=== PATIENT | male | born 1985 | race Caucasian/White ===

== ENCOUNTER 2017-08-11 14:39 | Emergency (ER) | payer OTHER ==
--- NOTE | 2017-08-11 14:51 | UC ---
Hand/Wrist HPI - HPI Summary HPI Summary: Pt presents with right hand pain s/p injury today at work. He tells me that about 1 hour [employer] he was loading trees onto a truck and his hand got caught in between two logs. Had immediate pain soon followed by mild swelling. His boss made him be evaluated. He has not taken anything for pain. Is currently applying ice. No numbness or tingling. - History Of Current Complaint Stated Complaint: HAND INJURY Time Seen by Provider: 08/11/17 14:50 Hx Obtained From: Patient Onset/Duration: Sudden Onset Severity Initially: Moderate Severity Currently: Moderate Pain Intensity: 6 Pain Scale Used: 0-10 Numeric Character Of Pain: Dull, Throbbing, Stiffness Aggravating Factor(s): Movement Alleviating Factor(s): Rest, Ice - Allergies/Home Medications Allergies/Adverse Reactions: Allergies Allergy/AdvReac Type Severity Reaction Status Date / Time No Known Allergies Allergy Verified 08/11/17 14:59 Home Medications: Home Medications NK [No Home Medications Reported] 08/11/17 [History Confirmed 08/11/17] PMH/Surg Hx/FS Hx/Imm Hx Previously Healthy: Yes - Surgical History Surgical History: Yes Surgery Procedure, Year, and Place: tonsillectomy - Family History Known Family History: Positive: None - Social History Occupation: Employed Full-time Lives: With Family Alcohol Use: Rare Substance Use Type: None Smoking Status (MU): Never Smoked Tobacco Review of Systems Constitutional: Negative Skin: Negative Respiratory: Negative Cardiovascular: Negative Neurovascular: Negative Musculoskeletal: Other: - Right hand pain Neurological: Negative Psychological: Negative All Other Systems Reviewed And Are Negative: Yes Physical Exam Triage Information Reviewed: Yes Appearance: Well-Appearing, No Pain Distress, Well-Nourished Vital Signs Reviewed: Yes Respiratory: Positive: Lungs clear, Normal breath sounds, No respiratory distress, No accessory muscle use Cardiovascular: Positive: RRR, No Murmur, Pulses Normal - Right radial and ulnar , Brisk Capillary Refill - Right hand and all fingers Musculoskeletal: Positive: Strength Intact - Right hand, ROM Limited @ - 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 No snuffbox or wrist tenderness. Neurological: Positive: Alert, Other: - Sensations intact right hand and all fingers Psychological: Positive: Age Appropriate Behavior Hand/Wrist Course/Dx - Course Course Of Treatment: XR: IMPRESSION: No fracture of the right hand is noted. Suspect contusion. He was offered and IGNACIA wrap, but declined. Advised RICE and ibuprofen prn. - Differential Dx/Diagnosis Provider Diagnoses: Right hand pain s/p crush injury Discharge - Discharge Plan Condition: Stable Disposition: HOME Patient Education Materials: Contusion in Adults (ED) Referrals: No Primary Care Phys,NOPCP [Primary Care Provider] - Additional Instructions: If you develop a fever, shortness of breath, chest pain, new or worsening symptoms - please call your PCP or go to the ED. Your blood pressure was high at todays visit. Please see your primary provider within 4 weeks for recheck and re-evaluation. 1) Rest, Ice, and Elevate your hand as much as possible over the next 24-48 hours. 2) May take 600-800mg ibuprofen every 6-8 hours as needed for pain
[2017-08-11 14:59] VITALS: BP 150/94
--- NOTE | 2017-08-11 15:18 | RAD ---
Indication: Right hand injury. 3 views of the right hand demonstrates no fracture. No other bone or joint abnormality is noted. IMPRESSION: No fracture of the right hand is noted.
== END 2017-08-11 15:30 | disposition home or self-care (01) ==
LOC: UCEAST 14:39
DX: M79.641 Pain in right hand (principal); S67.21XA Crushing injury of right hand, initial encounter; W23.0XXA Caught, crushed, jammed, or pinched between moving objects, initial encounter; Y93.89 Activity, other specified; Y92.89 Other specified places as the place of occurrence of the external cause; Y99.0 Civilian activity done for income or pay
CPT/HCPCS: 99211; G0463

== ENCOUNTER 2017-11-22 07:33 | Emergency (ER) | payer SELFPAY ==
[2017-11-22 07:44] VITALS: BP 160/105
--- NOTE | 2017-11-22 08:45 | UC ---
Ear Complaint HPI - HPI Summary HPI Summary: PATIENT PRESENTS WITH 4 DAYS OF WORSENING LEFT SINUS PRESSURE AND LEFT EAR PAIN. HE DENIES ANY HEARING LOSS OR DRAINAGE FROM THE EAR. HE ALSO HAS A HEADACHE AND TOOK SOME [id number] HEADACHE PILLS WHICH GAVE HIM TEMPORARY RELIEF. BENADRYL DID NOT HELP. THE PAIN IS KEEPING HIM UP AT NIGHT. HE DENIES ANY COUGH, NASAL DRAINAGE, SORE THROAT OR FEVER. HE IS NOT A MIGRAINE/ HEADACHE PERSON. NO VISUAL DISTURBANCES OR FACIAL SWELLING. HE HAS HAD SOME INTERMITTENT TEARING OF HIS LEFT EYE AND SLIGHT SENSITIVITY TO LIGHT. - History of Current Complaint Chief Complaint: UCGeneralIllness Stated Complaint: SINUS ISSUE Time Seen by Provider: 11/22/17 08:03 Hx Obtained From: Patient Onset/Duration: Gradual Onset, Lasting Days, Still Present Severity Initially: Moderate Severity Currently: Moderate Pain Intensity: 7 Pain Scale Used: 0-10 Numeric Aggravating Factors: Nothing Alleviating Factors: Nothing Associated Signs/Symptoms: Negative: Discharge, Hearing Loss, Trauma to Ear, Swelling @, URI Symptoms - Allergies/Home Medications Allergies/Adverse Reactions: Allergies Allergy/AdvReac Type Severity Reaction Status Date / Time No Known Allergies Allergy Verified 11/22/17 07:44 PMH/Surg Hx/FS Hx/Imm Hx Previously Healthy: Yes - Surgical History Surgical History: Yes Surgery Procedure, Year, and Place: tonsillectomy - Family History Known Family History: Positive: Diabetes - Social History Alcohol Use: Rare Substance Use Type: None Smoking Status (MU): Never Smoked Tobacco - Immunization History Most Recent Tetanus Shot: UNK Review of Systems Constitutional: Negative Eyes: Drainage - INTERMITTENT DRAINAGE LEFT EYE, Photophobia ENT: Ear Ache, Sinus Pain/Tenderness Respiratory: Negative Cardiovascular: Negative Gastrointestinal: Negative Neurological: Headache All Other Systems Reviewed And Are Negative: Yes Physical Exam Triage Information Reviewed: Yes Appearance: Well-Appearing, No Pain Distress, Well-Nourished Vital Signs: Initial Vital Signs Temp 98.7 F 11/22/17 07:40 Pulse 79 11/22/17 07:40 Resp 21 11/22/17 07:40 BP 160/105 11/22/17 07:40 Pulse Ox 100 11/22/17 07:40 Vital Signs Reviewed: Yes Eyes: Positive: Conjunctiva Clear, Other: - PERRL, EOMI. Negative: Discharge ENT: Positive: Hearing grossly normal, Pharynx normal, TMs normal Dental: Positive: Other: - RIGHT LOWER WISDOM TOOTH BROKEN. MULTIPLE FILLED CAVITIES THROUGHOUT Neck: Positive: Supple, Nontender, No Lymphadenopathy Respiratory Exam: Normal Cardiovascular Exam: Normal Abdomen Description: Positive: Soft Musculoskeletal: Positive: No Edema Neurological: Positive: Alert Psychological: Positive: Age Appropriate Behavior Skin: Negative: rashes Ear Complaint Course/Dx - Course Course Of Treatment: UNCLEAR ETIOLOGY OF PATIENT'S SYMPTOMS. HE HAS SIGNIFICANT LEFT SINUS PAIN AND LEFT EAR PAIN THAT IS GETTING WORSE AND KEEPING HIM UP AT NIGHT BUT DENIES ANY FEVER, COUGH OR NASAL DRAINAGE. ALTHOUGH HE DENIES DENTAL PAIN HE DOES HAVE POOR DENTITION. THERE IS NO FACIAL SWELLING OR REDNESS OF THE SKIN. GIVEN THE LEVEL OF DISCOMFORT WILL TREAT EMPIRICALLY WITH AUGMENTIN WHICH WILL COVER FOR SINUSES AND EARS AND DENTAL ISSUES. FOLLOW-UP IF NOT IMPROVING WITH THIS TREATMENT. DISCUSSED POSSIBILITY OF DEVELOPING CLUSTER TILLMAN ALTHOUGH PRESENTATION NOT CLASSIC FOR THIS EITHER. - Differential Dx/Diagnosis Provider Diagnoses: SINUS INFECTION Discharge - Sign-Out/Discharge Documenting (check all that apply): Discharge/Admit/Transfer - Discharge Plan Condition: Stable Disposition: HOME Prescriptions: Amoxicillin/Clavulanate TAB* [Augmentin TAB 875*] 875 mg PO BID #20 tab Patient Education Materials: Sinusitis (ED) Referrals: [facility] [Provider Group] - 2 Weeks Additional Instructions: UNCLEAR ETIOLOGY OF YOUR SYMPTOMS. GIVEN YOUR SIGNIFICANT SINUS DISCOMFORT AND LEFT EAR PAIN WILL COVER WITH AUGMENTIN. THIS WILL ALSO COVER ANY DENTAL CONCERNS. IF YOUR SYMPTOMS DO NOT IMPROVE WITH THIS TREATMENT FOLLOW-UP WITH YOUR PCP AT [facility]. GO TO THE ED WITHOUT FAIL IF YOU DEVELOP WORSENING PAIN, FACIAL SWELLING, FEVER, VISUAL DISTURBANCES OR ANY OTHER CONCERNING SYMPTOMS. YOUR BLOOD PRESSURE WAS ELEVATED TODAY (160/105). THIS MAY BE DUE TO YOUR ACUTE CONDITION. MONITOR AND FOLLOW-UP WITH YOUR PCP WITHIN 4 WEEKS IF IT HAS NOT RETURNED TO NORMAL. - Billing Disposition and Condition Condition: STABLE Disposition: Home
== END 2017-11-22 08:45 | disposition home or self-care (01) ==
LOC: UCEAST 07:33
DX: J32.9 Chronic sinusitis, unspecified (principal); Z83.3 Family history of diabetes mellitus
CPT/HCPCS: 99212; G0463

== ENCOUNTER 2018-06-22 09:16 | Emergency (ER) | payer BC, OTHER ==
[2018-06-22 09:39] VITALS: BP 150/100
[2018-06-22] MEDS: Ibuprofen TAB* 600 MG PO ONE (10:09)
--- NOTE | 2018-06-22 10:09 | UC ---
Back Pain HPI - HPI Summary HPI Summary: 32-year-old male comes to clinic today with a chief complaint of back pain. Patient reports the back pain started at work in 2017. He's had pain intermittently in his back ever since then. He did undergo physical therapy at one time which did help. Most recent episode has been over the last 3 weeks. This morning the pain is worse than usual. It's located in the lower thoracic upper lumbar spine. Denies any radiation of pain into the buttocks or into the legs. Denies any weakness or numbness. No difficulty controlling urine or bowels. Pain is worse with movement lifting. - History of Current Complaint Chief Complaint: UCBackPain Stated Complaint: BACK PAIN Time Seen by Provider: 06/22/18 09:50 Pain Intensity: 6 - Allergies/Home Medications Allergies/Adverse Reactions: Allergies Allergy/AdvReac Type Severity Reaction Status Date / Time No Known Allergies Allergy Verified 06/22/18 09:33 Home Medications: Home Medications Aspirin TAB* [Aspirin 325 MG TAB*] 650 mg PO Q6H PRN 06/22/18 [History Confirmed 06/22/18] PMH/Surg Hx/FS Hx/Imm Hx Previously Healthy: Yes - CHRONIC INTERMITTENT LOW BACK PAIN SINCE 2017 - Surgical History Surgical History: Yes Surgery Procedure, Year, and Place: tonsillectomy - Family History Known Family History: Positive: None, Diabetes - Social History Alcohol Use: Rare Substance Use Type: None Smoking Status (MU): Never Smoked Tobacco - Immunization History Most Recent Tetanus Shot: UNK Review of Systems All Other Systems Reviewed And Are Negative: Yes Constitutional: Positive: Negative Skin: Positive: Negative Eyes: Positive: Negative ENT: Positive: Negative Respiratory: Positive: Negative Cardiovascular: Positive: Negative Gastrointestinal: Positive: Negative Genitourinary: Positive: Negative Motor: Positive: Negative Neurovascular: Positive: Negative Musculoskeletal: Positive: Other: - Patient is tender to palpation lower thoracic and upper lumbar spine. Legs have full range of motion no sensation deficits. Neurological: Positive: Negative Psychological: Positive: Negative Is Patient Immunocompromised?: No Physical Exam Triage Information Reviewed: Yes Appearance: Well-Appearing, Well-Nourished, Pain Distress - MILD WITH BACK ROM Vital Signs: Initial Vital Signs Temp 98.4 F 06/22/18 09:26 Pulse 91 06/22/18 09:26 Resp 16 01/10/19 09:26 BP 150/100 06/22/18 09:26 Pulse Ox 98 06/22/18 09:26 Vital Signs Reviewed: Yes Eye Exam: Normal Eyes: Positive: Conjunctiva Clear Neck exam: Normal Neck: Positive: Supple Respiratory Exam: Normal Respiratory: Positive: Lungs clear, Normal breath sounds, No respiratory distress Cardiovascular: Positive: RRR Musculoskeletal: Positive: Strength Intact, ROM Intact, Other: - Patient is tender to palpation lower thoracic and upper lumbar spine. Legs have full range of motion no sensation deficits. Neurological Exam: Normal Neurological: Positive: Alert, Muscle Tone Normal Psychological Exam: Normal Psychological: Positive: Age Appropriate Behavior Skin Exam: Normal Back Pain Course/Dx - Course Course Of Treatment: Order Information: CT SPINE THORACIC W/O. Accession Number : [id number]. CPT: 83929. INDICATION: Worsening mid to lower back pain. COMPARISON: There are no prior studies available for comparison. TECHNIQUE: Contiguous axial sections of the thoracic and lumbar spine were obtained. Images were reconstructed in the sagittal and coronal planes. FINDINGS: Thoracic spine: In the sagittal plane there is exaggerated kyphosis. In the AP view there is a small. degree of S shaped curvature of the thoracic spine dextroconvex superiorly and levoconvex. inferiorly. The vertebral bodies and facet joints are otherwise appropriately aligned. Degenerative changes include loss of intervertebral disc height and anterior marginal. osteophyte formation most severely seen at T8-T12. At the anterior margin of the T11/T12. intervertebral disc there is vacuum disc phenomenon. Lumbar spine: There is a mild degree of loss of intervertebral disc height at L1/L2 and T12/L1. More. inferiorly the intervertebral disc height is adequately maintained. In the sagittal plane. normal lumbar lordosis is maintained. There is no curvature of the lumbar spine in the AP. view. The vertebral bodies and facet joints are appropriately aligned. There is no significant. spondylolisthesis. There is mild broad-based disc protrusion at L3/L4 combining with facet arthropathy and. thickening of ligamentum flavum to cause a mild degree of bilateral neural foraminal. stenosis. There is broad-based disc protrusion at L4/L5 combining with facet arthropathy and. thickening of ligamentum flavum to cause a mild degree of bilateral neural foraminal. stenosis and only 8 light degree of central canal stenosis. At L5/S1 there is broad-based disc protrusion abutting the ventral thecal sac does not. appear to yield any significant central canal or neural foraminal stenosis. IMPRESSION: 1. Degenerative changes most severely affecting the mid-level and lower thoracic spine. likely exacerbated by Thoracic spine S-shaped scoliosis and exaggerated kyphotic. deformity. 2. Mild degenerative disc disease of the lumbar spine causing what appears to be mild. degrees of central canal or neural foraminal stenoses from L3 to L5. 3. There is no CT evidence of an acute fracture or spondylolisthesis of the thoracic or. lumbar spine. Soft tissues are incompletely evaluated with noncontrast CT imaging. If it will influence. clinical management superior characterization can be made with MRI. . <Electronically signed by Arpan Bui MD in [place]> 1111. Order Information: CT SPINE LUMBAR W/O. Accession Number: [id number]. CPT: 07964. INDICATION: Worsening mid to lower back pain. COMPARISON: There are no prior studies available for comparison. TECHNIQUE: Contiguous axial sections of the thoracic and lumbar spine were obtained. Images were reconstructed in the sagittal and coronal planes. FINDINGS: Thoracic spine: In the sagittal plane there is exaggerated kyphosis. In the AP view there is a small. degree of S shaped curvature of the thoracic spine dextroconvex superiorly and levoconvex. inferiorly. The vertebral bodies and facet joints are otherwise appropriately aligned. Degenerative changes include loss of intervertebral disc height and anterior marginal. osteophyte formation most severely seen at T8-T12. At the anterior margin of the T11/T12. intervertebral disc there is vacuum disc phenomenon. Lumbar spine: There is a mild degree of loss of intervertebral disc height at L1/L2 and T12/L1. More. inferiorly the intervertebral disc height is adequately maintained. In the sagittal plane. normal lumbar lordosis is maintained. There is no curvature of the lumbar spine in the AP. view. The vertebral bodies and facet joints are appropriately aligned. There is no significant. spondylolisthesis. There is mild broad-based disc protrusion at L3/L4 combining with facet arthropathy and. thickening of ligamentum flavum to cause a mild degree of bilateral neural foraminal. stenosis. There is broad-based disc protrusion at L4/L5 combining with facet arthropathy and. thickening of ligamentum flavum to cause a mild degree of bilateral neural foraminal. stenosis and only 8 light degree of central canal stenosis. At L5/S1 there is broad-based disc protrusion abutting the ventral thecal sac does not. appear to yield any significant central canal or neural foraminal stenosis. IMPRESSION: 1. Degenerative changes most severely affecting the mid-level and lower thoracic spine. likely exacerbated by Thoracic spine S-shaped scoliosis and exaggerated kyphotic. deformity. 2. Mild degenerative disc disease of the lumbar spine causing what appears to be mild. degrees of central canal or neural foraminal stenoses from L3 to L5. 3. There is no CT evidence of an acute fracture or spondylolisthesis of the thoracic or. lumbar spine. Soft tissues are incompletely evaluated with noncontrast CT imaging. If it will influence. clinical management superior characterization can be made with MRI. . <Electronically signed by Arpan Bui MD in [place]> 1111. I discussed the CT results with the patient. The plan will be out of work until 27 June 2018 and then light duty and until cleared by medical provider. Follow-up with Dr. Fontana in occupational medicine. Can be treating with ibuprofen and Flexeril and a Medrol Dosepak. Patient is to get reevaluated sooner if worse or any questions or concerns such as weakness numbness difficulty controlling urine or bowels. - Differential Dx/Diagnosis Provider Diagnosis: Chronic back pain Discharge - Sign-Out/Discharge Documenting (check all that apply): Patient Departure All imaging exams completed and their final reports reviewed: Yes - Discharge Plan Condition: Stable Disposition: HOME Prescriptions: Cyclobenzaprine TAB* [Flexeril 10 MG TAB*] 10 mg PO TID PRN #15 tab PRN Reason: Pain Ibuprofen TAB* [Motrin TAB* 600 MG] 600 mg PO Q8H PRN #30 tab PRN Reason: Pain methylPREDNISolone [Medrol Dosepak 4 MG*] 0 mg PO .SEE RAEGAN INSTRUCTION #1 raegan Patient Education Materials: Back Pain (ED), Chronic Back Pain (DC), Lower Back Exercises (ED) Forms: *Work Release Referrals: Sandor Fontana MD [Medical Doctor] - Additional Instructions: FOLLOW UP WITH DR FONTANA, OCCUPATIONAL MEDICINE, FOR YOUR CHRONIC BACK PAIN. GET RECHECKED FOR ANY WORSENING OF YOUR CONDITION OR QUESTIONS OR CONCERNS. - Billing Disposition and Condition Condition: STABLE Disposition: Home
== END 2018-06-22 11:40 | disposition home or self-care (01) ==
LOC: UCEAST 09:16
DX: G89.29 Other chronic pain (principal); M54.9 Dorsalgia, unspecified; M47.9 Spondylosis, unspecified; M51.36 Other intervertebral disc degeneration, lumbar region; M48.061 Spinal stenosis, lumbar region without neurogenic claudication
CPT/HCPCS: 72128; 72131; 99212; A9270-GY; G0463